=== PATIENT | female | born 1930 | race Hispanic/Latino ===

== ENCOUNTER 2018-07-14 09:10 | Outpatient (CLI) | payer MEDICARE | END 2018-07-14 09:11 | disposition home or self-care (01) | LOC: C.LAB 09:10 | DX: E11.9 Type 2 diabetes mellitus without complications (principal) ==

== ENCOUNTER 2018-08-11 09:42 | Outpatient (CLI) | payer MEDICARE | END 2018-08-11 09:43 | disposition home or self-care (01) | LOC: C.RADH 09:42 ==

== ENCOUNTER 2018-11-05 07:40 | Outpatient (CLI) | payer MEDICARE | END 2018-11-05 07:41 | disposition home or self-care (01) | LOC: C.LAB 07:40 | DX: N18.3 Chronic kidney disease, stage 3 (moderate) (principal) ==